=== PATIENT | female | born 1990 | race Caucasian/White ===

== ENCOUNTER → 2023-07-05 12:52 | Outpatient (CLI) | payer BC, SELFPAY ==
[2023-07-05 13:55] LABS: Add Manual Diff / Slide Review NO; Basophils Absolute Auto 100 /uL (0-100); Basophils Percent Auto 1.1 % (0-2); Eosinophils Absolute Auto 400 /uL (0-450); Eosinophils Percent Auto 6.3 % (2-4); Hematocrit 41.6 % (36-46); Hemoglobin 13.9 g/dL (12.0-16.0); Lymphocytes Absolute Auto 2800 /uL (1100-4500); Lymphocytes Percent Auto 41.3 % (25-40); Mean Corpuscular HGB Conc 33.5 % (30-36); Mean Corpuscular Hemoglobin 31.6 PG (26-34); Mean Corpuscular Volume 94.5 fL (80-100); Monocytes Absolute Auto 400 /uL (0-900); Monocytes Percent Auto 6.1 % (3-14); Neutrophils Absolute Auto 3100 /uL (1500-7000); Neutrophils Percent Auto 45.2 % (50-75); Platelet Count 196 X10^3/uL (150-400); Red Cell Distribution Width 14.1 % (11.6-14.8); White Blood Cell Count 6.8 X10^3/uL (4.5-11.0)
[2023-07-05 14:24] LABS: HEMOLYSIS < 15 (0-50)
[2023-07-05 14:29] LABS: Iron 126 ug/dL (37-170)
[2023-07-05 14:41] LABS: Percent Iron Saturation 37 % (15-50); Total Iron Binding Capacity 339 ug/dL (265-497); Transferrin 292 mg/dL (206-381)
[2023-07-05 18:15] LABS: Ferritin 11 ng/mL (6-137)
[2023-07-07 16:49] LABS: TSH w/ Reflex to FT4 0.86 uIU/mL (0.47-4.68)
== END ==
LOC: LAB 12:54
PROVIDERS: PCP Family Medicine; Referring Provider Family Medicine; Visit Provider Family Medicine
DX: D50.9 Iron deficiency anemia, unspecified (principal); R63.5 Abnormal weight gain
CPT/HCPCS: 36415; 82728; 83540; 83550; 84443; 85025

== ENCOUNTER → 2023-07-14 14:07 | Outpatient (CLI) | payer BC, SELFPAY | PROVIDERS: PCP Family Medicine; Visit Provider Nurse Practitioner Family | DX: J02.9 Acute pharyngitis, unspecified (principal) | CPT/HCPCS: 87070; 87077; 87147 ==

== ENCOUNTER 2023-08-13 12:46 | Day surgery (SDC) | payer BC, SELFPAY ==
[2023-08-13] MEDS: LACTATED RINGERS 1,000 ML 42 ML IV (12:58)
--- NOTE | 2023-08-13 13:08 | PM.PREOP ---
Pre-operative Note Interval Note History & Physical reviewed/Exam performed by Physician: Yes Changes to H&P: No
[2023-08-13 13:09] VITALS: BP 118/69; PULSE 95; RESP 18; TEMP 36; O2SAT 100
[2023-08-13] MEDS: BUPIVACAINE 0.25% (PF) 30 ML, EPINEPHrine 0.15 MG INJ (13:43)
[2023-08-13 14:07] VITALS: BP 101/64; PULSE 74; RESP 27; TEMP 36.6; O2SAT 100
[2023-08-13 14:09] VITALS: BP 104/67; PULSE 71; RESP 22; O2SAT 99
[2023-08-13] MEDS: OXYCODONE IR 5 MG TABLET PO (14:12)
[2023-08-13] MEDS: ONDANSETRON 4 MG/2 ML INJ IV (14:12)
--- NOTE | 2023-08-13 14:13 | PM.OP.1 ---
Operative Date/Time/Diagnoses Date of procedure: 08/13/23 Time of procedure: 14:13 Pre-op diagnosis: Internal hemorrhoids Perianal skin tag Post-op diagnosis: same Procedure & Clinicians Procedure: Banding of internal hemorrhoids x3 Excision of perianal skin tag Same procedure as scheduled: Yes Indications: 33-year-old woman symptomatic hemorrhoids failed to improve with conservative therapy. Surgeon: Fredis Hadley Click Yes if Unassisted: Yes Anesthesia Type: Sedation Operative Notes Findings: Grade 2 internal hemorrhoids x3 Specimen(s): none sent Estimated Blood Loss (mL): 10 Procedure in detail: Patient was brought to the operating placed in the left lateral decubitus position. Sedation induced. Time-out performed. Anoscope inserted demonstrates grade 2 internal hemorrhoids x3 pedicles. Each pedicle was grasped suction and then doubly ligated at its base. Two perianal skin tags were excised after the application of 0.25% bupivacaine with epinephrine using electrocautery. The defect was then reapproximated using 4-0 Monocryl suture. She tolerated the procedure well Complications: none Post-operative Condition: stable Disposition: same day surgery
[2023-08-13 14:15] VITALS: BP 104/62; PULSE 71; RESP 23; O2SAT 100
[2023-08-13 14:16] VITALS: BP 99/61; PULSE 67; RESP 16; O2SAT 100
== END 2023-08-13 14:39 | disposition home or self-care (01) ==
PROVIDERS: PCP Family Medicine; Referring Provider Surgery; Visit Provider Surgery
PROC: 0DJD8ZZ Inspection of Lower Intestinal Tract, Via Natural or Artificial Opening Endoscopic (ICD-10-PCS; CPT 45378; principal; 2023-08-13 14:00)
DX: K64.4 Residual hemorrhoidal skin tags (principal)
CPT/HCPCS: 46230; J0171; J2405; J2704; J3010

== ENCOUNTER 2023-10-30 18:22 | Emergency (ER) | payer BC, SELFPAY ==
[2023-10-30 18:23] VITALS: BP 143/84; PULSE 102; RESP 15; TEMP 37; O2SAT 99; BMI 24.4
--- NOTE | 2023-10-30 18:33 | ED.URI ---
HPI - URI/Sore Throat General Chief Complaint: Upper Respiratory Symptoms Stated Complaint: Swelling in throat, Diff Breathing/Swallowing Time Seen by Provider: 10/30/23 18:23 Source: patient Mode of arrival: Ambulatory History of Present Illness HPI Narrative: 33-year-old female presents for 3 days of sore throat, trouble swallowing. Has been taking Tylenol and Mucinex for symptoms at home without significant relief. Able to tolerate secretions. Related Data Home Medications Medication Instructions Recorded Confirmed levonorgestrel 21 mcg/24 hours (8 intrauterine 07/01/23 09/03/23 yrs) 52 mg intrauterine device (Mirena) Previous Rx's Medication Instructions Recorded acetaminophen 325 mg capsule 650 mg (2 x 325 mg) PO QID PRN 08/13/23 (Tylenol) pain #60 caps docusate sodium 100 mg capsule 100 mg PO BID #30 caps 08/13/23 (Colace) ibuprofen 200 mg tablet 400 mg (2 x 200 mg) PO Q6H #60 tabs 08/13/23 oxycodone 5 mg tablet 5 mg PO Q6H PRN pain #5 tabs 08/13/23 wheat dextrin 3 gram/3.8 gram oral 3 g PO BID #144 grams 08/13/23 powder (Benefiber Sugar Free (dextrin)) amoxicillin 875 mg-potassium 1 tab PO Q12H #20 tabs 10/30/23 clavulanate 125 mg tablet dexamethasone 4 mg tablet 8 mg (2 x 4 mg) PO DAILY #6 tabs 10/30/23 Allergies Allergy/AdvReac Type Severity Reaction Status Date / Time No Known Drug Allergies Allergy Verified 10/30/23 18:31 Patient History Medical History Anemia (~2019) Internal hemorrhoids External hemorrhoids Weight gain Iron deficiency anemia Social History marital status: unmarried,single number of children: 1 household members: children lives independently: Yes Smoking Status: Never smoker alcohol intake: current substance use type: does not use Smoking Status: Never smoker alcohol intake frequency: holidays/special occasions only Substance Use Type: does not use Exam Initial Vital Signs Initial Vital Signs: Vital Signs Temperature 98.6 F 10/30/23 18:23 Pulse Rate 102 H 10/30/23 18:23 Respiratory Rate 15 10/30/23 18:23 Blood Pressure 143/84 H 10/30/23 18:23 Pulse Oximetry 99 10/30/23 18:23 Oxygen Delivery Method Room Air 10/30/23 18:23 Const: Awake, alert, no acute distress, nontoxic appearing HEENT: Airway patent, mucous membranes moist, 3+ bilateral pharyngeal edema with white exudates present, uvula midline Skin: Warm, Dry, intact, no rashes Neuro: AO x3, CN II-XII grossly intact, moves all extremities Course Orders Ordered: ED Orders 10/30/23 18:29 Strep Grp A by PCR Rapid Stat Throat Culture Stat Discontinued Medications Dexamethasone (Dexamethasone 10 Mg/Ml Vial) 10 mg PO NOW ONE Stop: 10/30/23 18:33 Last Admin: 10/30/23 18:43 Dose: 10 mg Documented By: KASSIE Ketorolac Tromethamine (Ketorolac 30 Mg/Ml Vial) 30 mg IM NOW ONE Stop: 10/30/23 18:33 Last Admin: 10/30/23 18:43 Dose: 30 mg Documented By: KASSIE Lidocaine HCl (Lidocaine Viscous 2% 15 Ml Solution) 15 ml PO NOW ONE Stop: 10/30/23 18:33 Last Admin: 10/30/23 18:43 Dose: 15 ml Documented By: KASSIE Vital Signs Vital signs: Vital Signs - 8 hr 10/30/23 18:23 10/30/23 19:12 Temperature 98.6 F Pulse Rate 102 H 81 Respiratory Rate 15 16 Blood Pressure 143/84 H 114/71 Pulse Oximetry 99 99 Oxygen Delivery Method Room Air Room Air MDM - URI/Sore Throat Differential Diagnosis Differential diagnosis: Likely upper respiratory infection, viral infection and pharyngitis Lab Data Labs: Lab Results 10/30/23 Range/Units 18:29 Group A Strep (PCR) Negative (Negative) MDM Narrative Medical decision making narrative: Pharyngitis with white exudates. Suspect strep throat. There appears to be symmetric swelling, does not appear to be abscess at this time. Patient given Decadron. Although strep swab is negative it does have appearance of strep and with how enlarged the patient's tonsils are a course of antibiotics has been sent to her pharmacy as well as additional steroids. Patient given strict ED return precautions. #66: Appropriate Testing for Patients with Pharyngitis [ x] The patient has acute pharyngitis/tonsillitis. The patient was prescribed antibiotics today and a strep test or culture was performed today or in the last 3 days. [ ] The patient has acute pharyngitis/tonsillitis and was prescribed antibiotics today. A strep test or culture was not performed because the patient meets one of the following: [ ] Patient received a competing diagnosis. The patient?s competing diagnosis is [] (e.g. acute otitis media, chronic sinusitis, cellulitis, etc.) [ ] Patient is currently on antibiotics or has been in the last 30 days. [ ] Patient had a competing comorbid condition within the last 12 months. The patient?s comorbid condition is [] (e.g., tuberculosis, neutropenia, cystic fibrosis, chronic bronchitis, pulmonary edema, respiratory failure, rheumatoid lung disease) Discharge Plan Departure Patient Disposition: Home Clinical Impression: Pharyngitis Instructions: DI for Pharyngitis/Tonsillopharyngitis -- Adult Activity Restrictions/Additional Instructions: Take Tylenol and ibuprofen as needed for pain, make sure to drink plenty of fluids. Finish all of your antibiotics even if you are feeling improved. If you notice that you were not able to swallow saliva at all or notice that your voices changing please come back for evaluation. Prescriptions: New amoxicillin-pot clavulanate 875-125 mg tablet 1 tab PO Q12H Qty: 20 0RF dexamethasone 4 mg tablet 8 mg PO DAILY Qty: 6 0RF No Action Mirena 21 mcg/24 hours (8 yrs) 52 mg intrauterine device intrauterine ibuprofen 200 mg tablet 400 mg PO Q6H Qty: 60 0RF docusate sodium [Colace] 100 mg capsule 100 mg PO BID Qty: 30 0RF oxycodone 5 mg tablet 5 mg PO Q6H PRN (Reason: pain) Qty: 5 0RF acetaminophen [Tylenol] 325 mg capsule 650 mg PO QID PRN (Reason: pain) Qty: 60 0RF Benefiber Sugar Free (dextrin) 3 gram/3.8 gram powder 3 g PO BID Qty: 144 0RF Rx Instructions: mix into at least 4 oz water or juice before administering Referrals: Megha Monique MD [Primary Care Provider] - Stand Alone Forms: Patient Portal/API
[2023-10-30] MEDS: KETOROLAC 30 MG/ML VIAL IM (18:43)
[2023-10-30] MEDS: DEXAMETHASONE 10 MG/ML VIAL PO (18:43)
[2023-10-30] MEDS: LIDOCAINE VISCOUS 2% 15 ML SOLUTION PO (18:43)
[2023-10-30 18:50] LABS: Strep Grp A by PCR Rapid Negative (Negative)
[2023-10-30 19:12] VITALS: BP 114/71; PULSE 81; RESP 16; O2SAT 99
== END 2023-10-30 19:13 | disposition home or self-care (01) ==
PROVIDERS: Emergency Provider Emergency Medicine; PCP Family Medicine
DX: J02.9 Acute pharyngitis, unspecified (principal)
CPT/HCPCS: 87070; 87077; 87147; 87651; 99283; J1100; J1885

== ENCOUNTER 2023-11-01 10:05 | Emergency (ER) | payer BC, SELFPAY ==
[2023-11-01 10:11] VITALS: BP 126/74; PULSE 79; RESP 18; TEMP 36.9; O2SAT 99; BMI 23.7
[2023-11-01 10:52] VITALS: PULSE 74; O2SAT 94
--- NOTE | 2023-11-01 11:15 | PC.NURSE ---
Pt came out room upset that she hasn't been seen by MD and that no one has looked at my throat. Pt is maintaining airway and secretions, breathing even and unlabored and sats high 90's on room air. Pt was [id number] by RT while in room waiting for MD. Pt verbalized that she was upset about wait time. Tried to explain to pt that she was evaluated by RT and will be seen by MD soon. Pt did not agree with my de-escalation and walked out. Pt able to talk at a loud level her complaints without airway compromise prior to departure.
== END 2023-11-01 11:23 | disposition left against medical advice (07) ==
PROVIDERS: Emergency Provider Emergency Medicine; PCP Family Medicine
CPT/HCPCS: 99281